=== PATIENT | female | born 2000 | race African-American/Black ===

== ENCOUNTER 2021-02-11 09:14 | Emergency (ER) | payer OTHER, SELFPAY ==
[2021-02-11 09:30] VITALS: BP 107/71; PULSE 119; RESP 16; TEMP 38.1; O2SAT 100
--- NOTE | 2021-02-11 09:35 | ED.URI ---
HPI - URI/Sore Throat General Chief Complaint: Upper Respiratory Infection Stated Complaint: sore throat Time Seen by Provider: 02/11/21 09:35 Source: patient and RN notes reviewed History of Present Illness HPI Narrative: Patient is a 20-year-old female who presents the urgent care with complaints of sore throat, nausea, fever, chills, upper right tooth ache. Patient states that Wednesday the tooth started bothering her and states that it has bothered her off and on with sensitivity to cold foods since her dentist added sealants to the tooth . Patient states that she has been using Aleve, Chloraseptic spray and cough drops for her symptoms. Denies of any known exposure to strep or Covid. No other acute complaints. No acute distress noted. Patient aware of the plan of care. Some parts of this dictation were generated by voice recognition software and may contain typographical and/or grammatical inaccuracies. Related Data Allergies Allergy/AdvReac Type Severity Reaction Status Date / Time No Known Allergies Allergy Verified 02/11/21 09:39 Review of Systems Review of Systems: Narrative: CONSTITUTIONAL: Reports of chills and fever EYES: Denies visual changes, redness, or discharge. ENT: Reports of upper right dental pain, sore throat CARDIOVASCULAR: Denies chest pain, palpitations, or edema. RESPIRATORY: Denies cough or dyspnea. GASTROINTESTINAL: Reports of intermittent nausea without vomiting, diarrhea or abdominal pain GENITOURINARY: Denies dysuria or hematuria. SKIN: Denies rash or itching. MUSCULOSKELETAL: Denies back pain, joint pain, or myalgia. NEUROLOGIC: Denies headache, numbness, or weakness. All other systems reviewed are negative, except as documented in HPI. PMFSH Social History Social History Gender identity (if verbalized by the patient): Female Comments At the time of my signature, I reviewed and agree with the nursing past medical, surgical, social, and family history. There is no relevant family history pertinent to the patient complaint. Exam Narrative: Exam Narrative: GENERAL: This is a well-nourished, well-developed patient, in no apparent distress. HEAD: normocephalic, atraumatic. EYES: PERRL. Sclera clear/white. Vision is grossly intact. EARS: External ears normal, auditory canals clear and without drainage, TMs normal without perforation. Hearing grossly intact. NOSE: External nose normal with no obvious nasal discharge, nares without redness, no rhinorrhea. THROAT: Mucous membranes moist, moderate erythema noted posterior oropharynx with mild bilateral tonsillar edema more notable to the right with large amounts of exudate, moderate postnasal drainage DENTAL: No obvious abscess, caries, avulsed teeth to the upper right quadrant. NECK: Neck supple, non-tender bilateral mild submandibular lymphadenopathy CARDIOVASCULAR: Regular rate and rhythm without murmurs, gallops, or rubs. RESPIRATORY: Clear to auscultation. Breath sounds equal bilaterally. No wheezes, rales, or rhonchi. GASTROINTESTINAL: Abdomen soft, non-tender, nondistended. SKIN: warm, intact with no suspicious lesions or rash, good texture and turgor. NEURO: awake, alert, and oriented to person, place and time. There were no obvious focal neurologic abnormalities. EXTREMITIES: No clubbing, cyanosis, or edema. Course Vital Signs Vital signs: Vital Signs Temperature 100.6 F H 02/11/21 09:30 Pulse Rate 119 H 02/11/21 09:30 Respiratory Rate 16 02/11/21 09:30 Blood Pressure 107/71 02/11/21 09:30 Pulse Oximetry 100 02/11/21 09:30 Temperature 100.6 F H 02/11/21 09:30 Pulse Rate 119 H 02/11/21 09:30 Respiratory Rate 16 02/11/21 09:30 Blood Pressure 107/71 02/11/21 09:30 Pulse Oximetry 100 02/11/21 09:30 Reviewed MDM - URI/Sore Throat MDM Narrative Medical decision making narrative: Reviewed lab results with the patient. She is aware that strep swab was positive. Advised the patient to complete oral antibio
== END 2021-02-11 09:55 | disposition home or self-care (01) ==
PROVIDERS: Emergency Provider Nurse Practitioner Family
DX: J02.0 Streptococcal pharyngitis (principal); J45.909 Unspecified asthma, uncomplicated
CPT/HCPCS: 87880; 99213; G0463